=== PATIENT | female | born 1980 | race Asian ===

== ENCOUNTER 2017-01-06 20:14 | Emergency (ER) | payer OTHER ==
[2017-01-06 20:22] VITALS: BP 118/74; PULSE 76; TEMP 98; BMI 20.3
--- NOTE | 2017-01-06 20:31 | PDOC ---
History of Present Illness - General History Source: Patient Exam Limitations: No Limitations, Language Barrier - History of Present Illness Initial Comments: 01/06/17 21:01 The patient is a 36 year old female, with no significant past medical history who presents to the emergency department with left thigh redness,itchiness, and pain since thursday night. Patient reports becoming symptomatic while outside during the nighttime on thursday around 9pm s/p inspect bug bite. She notes originally the area was a small itchy area with some redness. She reports over the past couple of days, her bite has progressively gotten worse with the inner layer of her bug bite becoming painful and the outer layer becoming increasingly itchy. She reports yesterday taking benadryl with no alleviation of her redness or itchiness. She denies recent fevers, chills, headache or dizziness. She denies recent nausea, vomit, diarrhea or constipation. She denies recent dysuria, frequency, urgency or hematuria. The patient does not speak tristanian. PAST MEDICAL HISTORY: See HPI PAST SURGICAL HISTORY: No significant history. FAMILY HISTORY: No pertinent history. SOCIAL HISTORY: Patient lives with family and is employed. MEDICATIONS: Reviewed. ALLERGIES: As per nursing notes. ROS General: No fevers or chills, no weakness, no weight loss HEENT: No change in vision. No sore throat. No ear pain CardioVascular: No chest pain or shortness of breath Respiratory:No cough, or wheezing. Gastrointestinal: No nausea, vomiting, diarrhea or constipation. No rectal bleeding Genitourinary: No dysuria, hematuria, or frequency Musculoskeletal: No joint or muscle pain or swelling Neurologic: No headache, vertigo, dizziness or loss of consciousness Psychiatric: No depression Skin: +left thigh redness/swelling Endocrine: no increased thirst or abnormal weight change Allergic: no skin or latex allergy All other systems reviewed and normal Exam: GENERAL: The patient is awake, alert, and fully oriented, in no acute distress. HEAD: Normal with no signs of trauma. EYES: Pupils equal, round and reactive to light, extraocular movements intact, sclera anicteric, conjunctiva clear. EXTREMITIES: Normal range of motion, no edema. NEUROLOGICAL: Normal speech, normal gait. PSYCH: Normal mood, normal affect. SKIN: Large area of erythema about 8in in diameter with some mild ecchymosis in the center. Some mild tenderness on palpation. Area of ecchymosis in the center is 1 inch in diameter. Slight increase of warmth. No swelling. No associated ascending lymphangitis. <Paco Sherman - Last Filed: 01/06/17 21:01> - General History Source: Patient Exam Limitations: No Limitations - History of Present Illness Initial Comments: 01/06/17 21:05 A portion of this note was documented by scribe services under my direction. I have reviewed the details of the note, within reason, and agree with the documentation. The case summary and management plan written by me. Assessment and plan: This is a 36-year-old female who comes in for evaluation of a rash on her left leg. Patient said the rash is primarily itchy with some painful component to it. Patient denies any associated symptoms of fever body aches or arthralgias. Patient said the bite occurred while she was at a park late at night and thinks it was most likely a spider bite. Patient did not remove a tick from her leg. There is not a bulls eye component to the rash. It appears that the rash is primarily ALLERGIC as a result of the bite however I cannot be sure that there is not a small infectious component to it so patient was started on Bactrim as well as given a dose of prednisone here in the emergency room. Patient was told to continue Benadryl for the itching and a prescription for Bactrim was sent to her pharmacy. Patient was given instructions to return if she developed any fevers or it was significantly worse in 48 hours. <Christopher Young I - Last Filed: 01/06/17 21:13> - General Chief Complaint: Pain, Acute Stated Complaint: BUG BITE LEFT THIGH Time Seen by Provider: 01/06/17 20:19 Past History <Paco Sherman - Last Filed: 01/06/17 21:01> - Past Medical History Other medical history: DENIES - Psycho/Social/Smoking Cessation Hx Anxiety: No Suicidal Ideation: No Smoking History: Never smoked Have you smoked in the past 12 months: No Information on smoking cessation initiated: No Hx Alcohol Use: No Drug/Substance Use Hx: No Substance Use Type: None <Christopher Young I - Last Filed: 01/06/17 21:13> - Past Medical History Allergies/Adverse Reactions: Allergies Allergy/AdvReac Type Severity Reaction Status Date / Time No Known Allergies Allergy Verified 01/06/17 20:15 Home Medications: Ambulatory Orders Sulfamethoxazole/Trimethoprim [Bactrim DS -] 1 tab PO BID #14 tablet 01/06/17 *Physical Exam - Vital Signs Last Vital Signs Temp Pulse Resp BP Pulse Ox 98 F 76 16 118/74 99 01/06/17 20:16 01/06/17 20:16 01/06/17 20:16 01/06/17 20:16 01/06/17 20:16 <Paco Sherman - Last Filed: 01/06/17 21:01> - Vital Signs Last Vital Signs Temp Pulse Resp BP Pulse Ox 98 F 76 16 118/74 99 01/06/17 20:16 01/06/17 20:16 01/06/17 20:16 01/06/17 20:16 01/06/17 20:16 <Christopher Young I - Last Filed: 01/06/17 21:13> *DC/Admit/Observation/Transfer - Attestations Scribe Attestion: 01/06/17 20:53 Documentation prepared by Paco Sherman, acting as medical information specialist for Christopher Young MD. <Paco Sherman - Last Filed: 01/06/17 21:01> - Discharge Dispostion Admit: No <Christopher Young I - Last Filed: 01/06/17 21:13> Diagnosis at time of Disposition: Rash Insect bite Qualifiers: Encounter type: initial encounter Qualified Code(s): W57.XXXA - Bitten or stung by nonvenomous insect and other nonvenomous arthropods, initial encounter Cellulitis Qualifiers: Site of cellulitis: extremity Site of cellulitis of extremity: lower extremity - Discharge Dispostion Disposition: HOME Condition at time of disposition: Stable - Prescriptions Prescriptions: Sulfamethoxazole/Trimethoprim [Bactrim DS -] 1 tab PO BID #14 tablet - Patient Instructions Additional Instructions: For the itching U can take Benadryl one tablet as often as every 4 hours. However the Benadryl will make you drowsy so during the day I would recommend that you take Claritin or Dawn 1 tablet which will last all day. In addition to that for infection take Bactrim 1 tablet twice a day for 7 days. Return if you are significantly worse in 48 hours or develops fever or red streaks going up her leg, Return to the emergency department immediately with ANY new, persistent or worsening symptoms. Continue any medications as previously prescribed by your physician. You should follow up with your primary doctor as soon as possible regarding today's emergency department visit. . Please make sure your doctor reviews the results of your emergency evaluation. Thank you for coming to the Emergency Department today for your care. It was a pleasure to see you today. Please note that your evaluation is INCOMPLETE until you follow-up with your doctor.
[2017-01-06] MEDS ORDERED: predniSONE 20 MG TABLET (UD) PO ONE (21:00)
[2017-01-06] MEDS ORDERED: SULFAMETHOXAZOLE/TRIMETHOPRIM 800MG/160MG D.S. TABLET PO ONE (21:03)
[2017-01-06] MEDS ORDERED: predniSONE 20 MG TABLET (UD) ONE (21:03)
[2017-01-06] MEDS ORDERED: SULFAMETHOXAZOLE/TRIMETHOPRIM 800MG/160MG D.S. TABLET ONE (21:06)
== END 2017-01-06 21:38 | disposition home or self-care (01) ==
LOC: FER 20:14
DX: R21 Rash and other nonspecific skin eruption (principal); S70.362A Insect bite (nonvenomous), left thigh, initial encounter; X58.XXXA Exposure to other specified factors, initial encounter; Y93.89 Activity, other specified; Y92.9 Unspecified place or not applicable
CPT/HCPCS: 99281-25